=== PATIENT | female | born 1950 | race Caucasian/White ===

== ENCOUNTER → 2017-02-27 | Outpatient (CLI) | payer MEDICARE, OTHER ==
[2017-02-27 09:07] LABS: MEAN PLATELET VOLUME 10.6 FL (7.4-10.4); RED BLOOD COUNT 4.33 10^6/uL (4.35-5.85); RED CELL DISTRIBUTION WIDTH 12.4 % (10.0-14.5)
[2017-02-27 09:31] LABS: ALANINE AMINOTRANSFERASE 23 U/L (0-55); ALBUMIN 4.3 G/DL (3.2-4.5); ANION GAP 8 MMOL/L (5-14); ASPARTATE AMINO TRANSFERASE 20 U/L (5-34); BILIRUBIN,TOTAL 0.5 MG/DL (0.1-1.0); BLOOD UREA NITROGEN 14 MG/DL (7-18); BUN/CREATININE RATIO 19; CALCIUM 9.2 MG/DL (8.5-10.1); CARBON DIOXIDE 26 MMOL/L (21-32); CHLORIDE 108 MMOL/L (98-107); CHOLESTEROL 166 MG/DL (< 200); CREATININE SERUM 0.73 MG/DL (0.60-1.30); DIRECT LDL 94 MG/DL (1-129); GFR ESTIMATED > 60; GLUCOSE 98 MG/DL (70-105); POTASSIUM 4.2 MMOL/L (3.6-5.0); SODIUM 142 MMOL/L (135-145); TOTAL PROTEIN 6.7 G/DL (6.4-8.2); TRIGLYCERIDES 57 MG/DL (<150); VLDL CHOLESTEROL 11 MG/DL (5-40)
== END ==
LOC: LAB 08:45
PROVIDERS: ATTEND Family Medicine
DX: E78.00 Pure hypercholesterolemia, unspecified (principal)
CPT/HCPCS: 36415; 80053; 80061; 85027

== ENCOUNTER → 2017-07-10 | Outpatient (CLI) | payer MEDICARE, OTHER ==
[2017-07-10 07:19] LABS: RED BLOOD COUNT 4.41 10^6/uL (4.35-5.85); RED CELL DISTRIBUTION WIDTH 12.6 % (10.0-14.5); WHITE BLOOD COUNT 6.4 10^3/uL (4.3-11.0)
[2017-07-10 07:37] LABS: ALANINE AMINOTRANSFERASE 18 U/L (0-55); ALBUMIN 4.1 GM/DL (3.2-4.5); ANION GAP 8 MMOL/L (5-14); ASPARTATE AMINO TRANSFERASE 18 U/L (5-34); BILIRUBIN,TOTAL 0.4 MG/DL (0.1-1.0); BLOOD UREA NITROGEN 16 MG/DL (7-18); BUN/CREATININE RATIO 22; CALCIUM 9.2 MG/DL (8.5-10.1); CARBON DIOXIDE 23 MMOL/L (21-32); CHLORIDE 110 MMOL/L (98-107); CREATININE SERUM 0.72 MG/DL (0.60-1.30); GFR ESTIMATED > 60; GLUCOSE 98 MG/DL (70-105); SODIUM 141 MMOL/L (135-145); TOTAL PROTEIN 6.4 GM/DL (6.4-8.2)
== END ==
LOC: LAB 07:00
PROVIDERS: ATTEND Psychiatry & Neurology Neurology
DX: G40.909 Epilepsy, unspecified, not intractable, without status epilepticus (principal); Z79.899 Other long term (current) drug therapy
CPT/HCPCS: 36415; 80053; 80177; 85027

== ENCOUNTER → 2018-09-01 | Outpatient (CLI) | payer MEDICARE, OTHER ==
[2018-09-01 07:25] LABS: HEMOGLOBIN 13.2 G/DL (11.5-16.0); MEAN PLATELET VOLUME 10.3 FL (7.4-10.4); RED BLOOD COUNT 4.37 10^6/uL (4.35-5.85); RED CELL DISTRIBUTION WIDTH 12.7 % (10.0-14.5); WHITE BLOOD COUNT 6.9 10^3/uL (4.3-11.0)
[2018-09-01 07:45] LABS: ALANINE AMINOTRANSFERASE 87 U/L (0-55); ALBUMIN 4.4 GM/DL (3.2-4.5); ALKALINE PHOSPHATASE 102 U/L (40-136); BILIRUBIN,TOTAL 0.7 MG/DL (0.1-1.0); BUN/CREATININE RATIO 21; CALCIUM 9.7 MG/DL (8.5-10.1); CARBON DIOXIDE 21 MMOL/L (21-32); CHLORIDE 107 MMOL/L (98-107); CHOLESTEROL 213 MG/DL (< 200); CREATININE SERUM 0.73 MG/DL (0.60-1.30); GFR ESTIMATED > 60; GLUCOSE 98 MG/DL (70-105); HDL CHOLESTEROL 67 MG/DL (40-60); POTASSIUM 3.9 MMOL/L (3.6-5.0); SODIUM 140 MMOL/L (135-145); TOTAL PROTEIN 6.9 GM/DL (6.4-8.2); TRIGLYCERIDES 117 MG/DL (<150); VLDL CHOLESTEROL 23 MG/DL (5-40)
== END ==
LOC: LAB 07:05
PROVIDERS: ATTEND Psychiatry & Neurology Neurology
DX: I10 Essential (primary) hypertension (principal)
CPT/HCPCS: 36415; 80053; 80061; 85027

== ENCOUNTER 2021-04-07 08:41 | Emergency (ER) | payer MEDICARE, OTHER ==
[~2021-04-07] VITALS: Ht 162 cm; Wt 95.0 kg
[2021-04-07] MEDS ORDERED: FLUO20CA46 (08:53)
[2021-04-07] MEDS ORDERED: LEVE500T6 (08:53)
[2021-04-07] MEDS ORDERED: LOVA40TA2 (08:53)
--- NOTE | 2021-04-07 08:55 | ED Lower Extremity ---
General Chief Complaint: Lower Extremity Stated Complaint: FELL- L FOOT PAIN Nursing Triage Note: PT STATES FELL THIS AM SLIPPED IN GARAGE, CO OF L ANKLE PAIN. 5/10 RATES PAIN, LAST PM Nursing Sepsis Screen: No Definite Risk Source: patient Exam Limitations: no limitations History of Present Illness Date Seen by Provider: April 07, 2021 Time Seen by Provider: 08:45 Initial Comments Patient is a 71-year-old female who presents to the emergency department today with a chief complaint of left ankle pain. Patient states that she was stepping down into her garage yesterday when her foot went out from underneath her and she slipped and fell on her left ankle. Patient ambulates to the emergency department using crutches for support but is obviously able to bear some weight on her left foot. She denies any complaints of knee or hip pain. Did not hit her head or have a loss of consciousness. Patient complains of the majority of pain to the medial left ankle. She states it swollen and bruised. She did not apply any ice packs. She did take 2 Excedrin this morning. All other review of systems reviewed and negative except as stated. Onset: yesterday Severity: moderate Pain/Injury Location: left ankle Method of Injury: fell Modifying Factors: Worse With Movement Allergies and Home Medications Patient Home Medication List Home Medication List Reviewed: Yes Review of Systems Constitutional: see HPI Respiratory: no symptoms reported Cardiovascular: no symptoms reported Gastrointestinal: no symptoms reported Genitourinary: no symptoms reported Musculoskeletal: joint pain (Left ankle) Skin: no symptoms reported All Other Systems Reviewed Negative Unless Noted: Yes Past Qsyxdwn-Fvmemq-Teniqk Hx Patient Social History Alcohol Use: Denies Use Smoking Status: Never a Smoker Recent Infectious Disease Expo: No Recent Hopitalizations: No Seasonal Allergies Seasonal Allergies: No Past Medical History Section Respiratory: No Cardiac: No Neurological: Yes Seizure Disorder Genitourinary: No Gastrointestinal: No Musculoskeletal: No Endocrine: No HEENT: No Cancer: No Psychosocial: No Integumentary: No Physical Exam Vital Signs Vital Signs - First Documented 04/07/21 08:45 Temp 36.5 Pulse 97 Resp 18 B/P (MAP) 132/98 (109) Pulse Ox 95 Capillary Refill : Less Than 3 Seconds Height, Weight, BMI Height: '" Weight: lbs. oz. kg; 36.00 BMI Method: General Appearance: WD/WN, no apparent distress Neck: full range of motion Cardiovascular: regular rate, rhythm Respiratory: lungs clear, normal breath sounds, no respiratory distress Hips: bilateral hip normal range of motion, bilateral hip no evidence of injury Legs: bilateral leg normal range of motion, bilateral leg no evidence of injury Knees: bilateral knee normal inspection, bilateral knee normal range of motion, bilateral knee no evidence of injury Ankles: right ankle non-tender, right ankle normal inspection, right ankle normal range of motion, right ankle no evidence of injury; left ankle bone tenderness (Medial malleolus), left ankle limited range of motion, left ankle pain, left ankle soft tissue tenderness, left ankle swelling, left ankle other (Ecchymosis) Feet: bilateral foot non-tender, bilateral foot normal inspection, bilateral foot normal range of motion, bilateral foot no evidence of injury; left foot other (Large callus plantar surface lateral left foot) Neurologic/Tendon: normal sensation, normal motor functions, normal tendon functions Neurologic/Psychiatric: alert, normal mood/affect, oriented x 3 Skin: normal color, warm/dry Progress/Results/Core Measures Results/Orders My Orders Orders - MIKEL ROMO MD Ankle, Left, 3 Views (04/07/21 08:52) Vital Signs/I&O 04/07/21 04/07/21 08:45 10:08 Temp 36.5 Pulse 97 88 Resp 18 18 B/P (MAP) 132/98 (109) 124/88 (109) Pulse Ox 95 95 Blood Pressure Mean: 109 Diagnostic Imaging Diagonstic Imaging: Xray Plain Films/CT/US/NM/MRI: ankle Comments [facility], [place] NAME: [facility] REC#: [id number] PT STATUS: REG ER : 1950 PHYSICIAN: MIKEL ROMO MD ADMIT DATE: 04/07/21/ER Draft Date of Exam:04/07/21 ANKLE, LEFT, 3 VIEWS INDICATION: Status post fall. EXAMINATION: Left ankle from 04/07/2021 FINDINGS: 3 views ankle Comminuted fractures of the distal fibula and the medial malleolus noted. There is no evidence for an acute abnormality within the talar dome. Ankle mortise appears preserved. There is diffuse soft tissue swelling. IMPRESSION: 1. Distal tibia and fibular fractures. Dictated on workstation # [id number] Dict: 04/07/21915 Trans: 04/07/21917 [facility] [id number] Interpreted by: KENNY WATERMAN MD Electronically signed by: Departure Impression Primary Impression: Bimalleolar fracture of left ankle Qualified Codes: S82.842A - Displaced bimalleolar fracture of left lower leg, initial encounter for closed fracture Disposition: HOME, SELF-CARE Condition: Stable Departure-Patient Inst. Decision time for Depature: 09:31 Referrals: TRUE CORTES MD (PCP/Family) Primary Care Physician TAMMI BAPTISTE MD Patient Instructions: Splint Care ED, Ankle Fracture ED Add. Discharge Instructions: Keep the splint on and do not remove it until you follow-up with the orthopedic surgeon. Do not bear any weight on the left ankle until you follow-up with the orthopedic surgeon for further management. I have given you contact information for Dr. Baptiste. Please call his office first thing Friday for a follow-up appointment next week. Continue to ice the ankle 20 minutes at a time at least 3 times daily. Keep the left leg elevated above your heart when you are sitting or laying down. Take [id number] ibuprofen, 3 tablets which is 600 mg 3 times daily with food for pain until you follow-up with the orthopedic surgeon. Come back to the emergency room for any increased pain, swelling, numbness or tingling in the foot or any other emergent concerning symptoms. MIKEL ROMO MD April 07, 2021 08:55
--- NOTE | 2021-04-07 09:18 | Diagnostic Imaging Report ---
INDICATION: Status post fall. EXAMINATION: Left ankle from 04/07/2021 FINDINGS: 3 views ankle Comminuted fractures of the distal fibula and the medial malleolus noted. There is no evidence for an acute abnormality within the talar dome. Ankle mortise appears preserved. There is diffuse soft tissue swelling. IMPRESSION: 1. Distal tibia and fibular fractures. Dictated by: Dictated on workstation # [id number]
[2021-04-07 10:08] VITALS: BP 124/88
== END 2021-04-07 10:07 | disposition home or self-care (01) ==
LOC: EDUNIT# 08:41 → ER 08:43
DX: S82.842A Displaced bimalleolar fracture of left lower leg, initial encounter for closed fracture (principal); W01.0XXA Fall on same level from slipping, tripping and stumbling without subsequent striking against object, initial encounter; Y92.59 Other trade areas as the place of occurrence of the external cause
CPT/HCPCS: 29515; 73610